=== PATIENT | female | born 1990 | race American Indian/Alaskan Native ===

== ENCOUNTER 2021-03-22 14:20 | Emergency (ER) | payer BC ==
[2021-03-22 14:27] VITALS: BP 154/95
[2021-03-22 15:15] LABS: Basophils # (Auto) 0.1 K/mm3 (0.0-0.1); Basophils % (Auto) 0.5 % (0.0-1.8); Eosinophils # (Auto) 0.2 K/mm3 (0.0-0.4); Eosinophils % (Auto) 1.5 % (0.0-4.3); Hematocrit 37.1 % (30.3-42.9); Hemoglobin 12.3 gm/dl (10.1-14.3); Lymphocytes # (Auto) 3.5 K/mm3 (1.2-5.4); Lymphocytes % (Auto) 28.4 % (13.4-35.0); Mean Corpuscular HGB Conc 33 % (30-34); Mean Corpuscular Volume 81 fl (79-97); Monocytes # (Auto) 0.8 K/mm3 (0.0-0.8); Monocytes % (Auto) 6.4 % (0.0-7.3); Platelet Count 429 K/mm3 (140-440); Red Blood Count 4.57 M/mm3 (3.65-5.03); Red Cell Distribution Width 15.4 % (13.2-15.2)
[2021-03-22 15:40] LABS: Alanine Aminotransferase 13 units/L (7-56); Albumin 4.3 g/dL (3.9-5); Blood Urea Nitrogen 10 mg/dL (7-17); Calcium 9.3 mg/dL (8.4-10.2); Hemolysis Index 6
--- NOTE | 2021-03-22 15:41 | Emergency Department Report ---
ED Chest Pain HPI - General Chief Complaint: Chest Pain Stated Complaint: CHEST PAIN Time Seen by Provider: 03/22/21 14:40 Source: patient Mode of arrival: Ambulatory Limitations: No Limitations - History of Present Illness Initial Comments: Patient is a 30-year-old female presents emergency room complaints of substernal chest pain that began 3 days ago. she has associated SOB. she states she has been having pleuritic pain. She states her pain in her chest is worse with palpation. She denies any fall or injury. She denies any fever, nausea, vomit ing, diarrhea, cough, leg swelling, hemoptysis. She reports that 2 weeks ago she was diagnosed with a sinus infection and completed a course of antibiotics. Past medical history of hypertension, GERD, hiatal hernia. Last menstrual cycle 03/03/2021. She is a former smoker and quit 1 year ago. She denies any recent travel, recent surgery, hormone use. She denies any family cardiac history. Severity scale (0 -10): 6 - Related Data Previous Rx's Medication Instructions Recorded Last Taken Type Naproxen 375 mg PO BID PRN #14 tablet 03/22/21 Unknown Rx Prednisone [predniSONE 10 mg 10 mg PO .TAPER #1 tab.ds.pk 03/22/21 Unknown Rx (6-Day Pack, 21 Tabs)] Allergies Allergy/AdvReac Type Severity Reaction Status Date / Time rubber, unspecified AdvReac Hives Verified 03/22/21 14:25 vitamin E (d-alpha AdvReac Hives Verified 03/22/21 14:25 tocopherol) Heart Score - HEART Score History: Slightly suspicious EKG: Normal Age: < 45 Risk factors: > 3 risk factors or hx of atherosclerotic disease Troponin: < normal limit HEART Score: 2 - EKG Read Time Time EKG Completed: 14:46 EKG Read Time: 14:47 ED Review of Systems ROS: Stated complaint: CHEST PAIN Other details as noted in HPI Comment: All other systems reviewed and negative ED Past Medical Hx - Medications Home Medications: Home Medications Medication Instructions Recorded Confirmed Last Taken Type Naproxen 375 mg PO BID PRN #14 tablet 03/22/21 Unknown Rx Prednisone [predniSONE 10 mg 10 mg PO .TAPER #1 tab.ds.pk 03/22/21 Unknown Rx (6-Day Pack, 21 Tabs)] ED Physical Exam - General Limitations: No Limitations General appearance: alert, in no apparent distress - Head Head exam: Present: atraumatic, normocephalic - Eye Eye exam: Present: normal appearance - ENT ENT exam: Present: mucous membranes moist - Respiratory Respiratory exam: Present: normal lung sounds bilaterally, chest wall tenderness (reproducible anterior chest wall ttp, no crepitus, no deformity). Absent: respiratory distress, wheezes, rales, rhonchi, stridor, accessory muscle use, decreased breath sounds, prolonged expiratory - Cardiovascular Cardiovascular Exam: Present: regular rate, normal rhythm, normal heart sounds. Absent: systolic murmur, diastolic murmur, rubs, gallop - Neurological Exam Neurological exam: Present: alert, oriented X3 - Psychiatric Psychiatric exam: Present: normal affect, normal mood - Skin Skin exam: Present: warm, dry, intact ED Course Vital Signs 03/22/21 14:26 Temperature 98.4 F Pulse Rate 75 Respiratory 16 Rate Blood Pressure 154/95 [Left] O2 Sat by Pulse 99 Oximetry ED Medical Decision Making - Lab Data Result diagrams: 03/22/21 14:49 03/22/21 14:49 Lab Results 03/22/21 03/22/21 03/22/21 Range/Units 14:49 14:49 14:49 WBC 12.2 H (4.5-11.0) K/mm3 RBC 4.57 (3.65-5.03) M/mm3 Hgb 12.3 (10.1-14.3) gm/dl Hct 37.1 (30.3-42.9) % MCV 81 (79-97) fl MCH 27 L (28-32) pg MCHC 33 (30-34) % RDW 15.4 H (13.2-15.2) % Plt Count 429 (140-440) K/mm3 Lymph % (Auto) 28.4 (13.4-35.0) % Marshall % (Auto) 6.4 (0.0-7.3) % Eos % (Auto) 1.5 (0.0-4.3) % Baso % (Auto) 0.5 (0.0-1.8) % Lymph # (Auto) 3.5 (1.2-5.4) K/mm3 Marshall # (Auto) 0.8 (0.0-0.8) K/mm3 Eos # (Auto) 0.2 (0.0-0.4) K/mm3 Baso # (Auto) 0.1 (0.0-0.1) K/mm3 Seg Neutrophils % 63.2 (40.0-70.0) % Seg Neutrophils # 7.7 (1.8-7.7) K/mm3 D-Dimer 260.81 H (0-234) ng/mlDDU Sodium 142 (137-145) mmol/L Potassium 3.6 (3.6-5.0) mmol/L Chloride 102.0 (98-107) mmol/L Carbon Dioxide 26 (22-30) mmol/L Anion Gap 18 mmol/L BUN 10 (7-17) mg/dL Creatinine 0.7 (0.6-1.2) mg/dL Estimated GFR > 60 ml/min BUN/Creatinine Ratio 14 % Glucose 109 H (65-100) mg/dL Calcium 9.3 (8.4-10.2) mg/dL Total Bilirubin 0.40 (0.1-1.2) mg/dL AST 15 (5-40) units/L ALT 13 (7-56) units/L Alkaline Phosphatase 89 (35-129) units/L Troponin T < 0.010 (0.00-0.029) ng/mL NT-Pro-B Natriuret Pep 6.48 (0-450) pg/mL Total Protein 7.7 (6.3-8.2) g/dL Albumin 4.3 (3.9-5) g/dL Albumin/Globulin Ratio 1.3 % HCG, Qual (Negative) 03/22/21 Range/Units 14:49 WBC (4.5-11.0) K/mm3 RBC (3.65-5.03) M/mm3 Hgb (10.1-14.3) gm/dl Hct (30.3-42.9) % MCV (79-97) fl MCH (28-32) pg MCHC (30-34) % RDW (13.2-15.2) % Plt Count (140-440) K/mm3 Lymph % (Auto) (13.4-35.0) % Marshall % (Auto) (0.0-7.3) % Eos % (Auto) (0.0-4.3) % Baso % (Auto) (0.0-1.8) % Lymph # (Auto) (1.2-5.4) K/mm3 Marshall # (Auto) (0.0-0.8) K/mm3 Eos # (Auto) (0.0-0.4) K/mm3 Baso # (Auto) (0.0-0.1) K/mm3 Seg Neutrophils % (40.0-70.0) % Seg Neutrophils # (1.8-7.7) K/mm3 D-Dimer (0-234) ng/mlDDU Sodium (137-145) mmol/L Potassium (3.6-5.0) mmol/L Chloride (98-107) mmol/L Carbon Dioxide (22-30) mmol/L Anion Gap mmol/L BUN (7-17) mg/dL Creatinine (0.6-1.2) mg/dL Estimated GFR ml/min BUN/Creatinine Ratio % Glucose (65-100) mg/dL Calcium (8.4-10.2) mg/dL Total Bilirubin (0.1-1.2) mg/dL AST (5-40) units/L ALT (7-56) units/L Alkaline Phosphatase (35-129) units/L Troponin T (0.00-0.029) ng/mL NT-Pro-B Natriuret Pep (0-450) pg/mL Total Protein (6.3-8.2) g/dL Albumin (3.9-5) g/dL Albumin/Globulin Ratio % HCG, Qual Negative (Negative) - EKG Data EKG shows normal: sinus rhythm, axis, intervals, QRS complexes, ST-T waves Rate: normal - Radiology Data Radiology results: report reviewed Ordering Physician: TANISHA GABRIEL Date of Service: 03/22/21 Procedure(s): CT angio chest Accession Number(s): [id number] cc: TANISHA GABRIEL CTA CHEST WITH IV CONTRAST INDICATION: CP, SOB, elevated d-dimer. TECHNIQUE: Axial CT images were obtained through the chest after injection of IV contrast. 3 plane MIP reconstructions were produced. All CT scans at this location are performed using CT dose reduction for ALARA by means of automated exposure control. COMPARISON: None available. FINDINGS: Pulmonary Arteries: No pulmonary emboli. Thoracic Aorta: No acute abnormality. Heart: Normal. Lungs: No acute air space or interstitial disease. Pleura: No pleural effusion. No pneumothorax. Lymph Nodes: No significant adenopathy. Additional Findings: There is localized dilatation of a left pulmonary vein (axial image 34, a round coronal image 52). Upper Abdomen: No acute findings. Skeletal Structures: No significant osseous abnormality. IMPRESSION: 1. No CT evidence for pulmonary embolism. No acute findings. 2. Incidental left pulmonary vein varix. Signer Name: Thuan Pugh MD Signed: 03/22/2021 4:39 PM Workstation Name: [id number] Transcribed By: CRISTAL Dictated By: Thuan Pugh MD Electronically Authenticated By: Thuan Pugh MD Signed Date/Time: 03/22/211638 DD/ 32 TD/TT: - Medical Decision Making Patient is a 30-year-old female presents emergency room complaints of substernal chest pain that began 3 days ago. she has associated SOB. she states she has been having pleuritic pain. She states her pain in her chest is worse with palpation. She denies any fall or injury. She denies any fever, nausea, vomiting, diarrhea, cough, leg swelling, hemoptysis. She reports that 2 weeks ago she was diagnosed with a sinus infection and completed a course of antibiotics. Past medical history of hypertension, GERD, hiatal hernia. Last menstrual cycle 03/03/2021. She is a former smoker and quit 1 year ago. She denies any recent travel, recent surgery, hormone use. She denies any family cardiac history. Vitals are stable. On exam: reproducible anterior chest wall ttp, no crepitus, no deformity. EKG is normal limits. Labs significant for mildly elevated D-dimer. Troponin is negative. CT angio chest 1. No CT evidence for pulmonary embolism. No acute findings. 2. Incidental left pulmonary vein varix. Heart score is 2, low risk of cardiac event. The up-to-date medical literature recommends that if symptoms have been ongoing for greater than 24 hours ACS may be ruled out with EKG and one troponin. Symptoms could be related to pleuritis versus costochondritis. Patient given prescription for medication. Advised patient Please take medication as prescribed as needed. Follow-up with your primary care doctor. Follow-up with a pre sales technical engineer. Return to emergency room for any new or worsening symptoms. Critical care attestation.: If time is entered above; I have spent that time in minutes in the direct care of this critically ill patient, excluding procedure time. ED Disposition Clinical Impression: SOB (shortness of breath) Chest pain Qualifiers: Chest pain type: unspecified Qualified Code(s): R07.9 - Chest pain, unspecified Disposition: 01 HOME / SELF CARE / HOMELESS Is pt being admited?: No Does the pt Need Aspirin: No Condition: Stable Instructions: Pleurisy Additional Instructions: Please take medication as prescribed as needed. Follow-up with your primary care doctor. Follow-up with a pre sales technical engineer. Return to emergency room for any new or worsening symptoms. Prescriptions: Naproxen 375 mg PO BID PRN #14 tablet PRN Reason: pain Prednisone [predniSONE 10 mg (6-Day Pack, 21 Tabs)] 10 mg PO .TAPER #1 tab.ds.pk Referrals: JADE AGUILA MD [Primary Care Provider] - 3-5 Days ANGE OHARA MD [Staff Physician] - 3-5 Days Time of Disposition: 16:49 Print Language: FAROESE
[2021-03-22 15:43] LABS: BUN/Creatinine Ratio 14
--- NOTE | 2021-03-22 16:44 | Cat Scan Report ---
CTA CHEST WITH IV CONTRAST INDICATION: CP, SOB, elevated d-dimer. TECHNIQUE: Axial CT images were obtained through the chest after injection of IV contrast. 3 plane MIP reconstru ctions were produced. All CT scans at this location are performed using CT dose reduction for ALARA b y means of automated exposure control. COMPARISON: None available. FINDINGS: Pulmonary Arteries: No pulmonary emboli. Thoracic Aorta: No acute abnormality. Heart: Normal. Lungs: No acute air space or interstitial disease. Pleura: No pleural effusion. No pneumothorax. Lymph Nodes: No significant adenopathy. Additional Findings: There is localized dilatation of a left pulmonary vein (axial image 34, a round coronal image 52). Upper Abdomen: No acute findings. Skeletal Structures: No significant osseous abnormality. IMPRESSION: 1. No CT evidence for pulmonary embolism. No acute findings. 2. Incidental left pulmonary vein varix. Signer Name: Thuan Pugh MD Signed: 03/22/2021 4:39 PM Workstation Name: [id number]
--- NOTE | 2021-03-23 10:22 | Electrocardiograph Report ---
[facility] Test Date: 2021-03-22 Test Time: 14:46:31 Pat Name: SHERITA MO Department: Room: Gender: F Gate Tender: NURSE : 1990 Requested By: SHERLEY HERRERA Order Number: [id number] Reading MD: Cristian Sampson Measurements Intervals [place] Rate: 75 P: 59 MT: 139 QRS: 64 QRSD: 88 T: 43 QT: 388 QTc: 433 Interpretive Statements Sinus rhythm No previous ECG available for comparison Electronically Signed On 03-23-2021 10:21:53 EST by Cristian Sampson
== END 2021-03-22 17:13 | disposition home or self-care (01) ==
LOC: ED 14:20
DX: R06.02 Shortness of breath (principal); R07.9 Chest pain, unspecified; Z91.040 Latex allergy status; Z91.018 Allergy to other foods
CPT/HCPCS: 36415; 71275; 80053; 83880; 84484; 84703; 85025; 85379; 93005; 99284; Q9967